=== PATIENT | female | born 2000 | race Caucasian/White ===

== ENCOUNTER 2019-10-01 08:05 | Day surgery (SDC) | payer OTHER ==
[~2019-10-01] VITALS: Ht 167.6 cm; Wt 56.7 kg
[2019-10-01] MEDS ORDERED: CEFAZOLIN SOD 1 GM in D5W 50 ML IV ONE (09:45)
[2019-10-01] MEDS ORDERED: KETOROLAC TROMETHAMINE 30 MG VIAL IVP PRN (11:30)
[2019-10-01] MEDS ORDERED: ONDANSETRON HCL 4 MG/2 ML VIAL IVP PRN ×2 (11:30→12:45)
[2019-10-01] MEDS ORDERED: fentaNYL CITRATE/PF 100 MCG/2 ML AMP IVP PRN (11:30)
[2019-10-01] MEDS ORDERED: LR 1,000 ML IV.SOLN IV ONE (12:20)
[2019-10-01] MEDS ORDERED: KETOROLAC TROMETHAMINE 30 MG VIAL ONE ×2 (12:20→14:47)
[2019-10-01] MEDS ORDERED: NS IRRIG SOLN 1000 ML IR ONE (12:20)
[2019-10-01] MEDS ORDERED: MIDAZOLAM HCL 5 MG/ML VIAL (VERSED) IV ONE (12:20)
[2019-10-01] MEDS ORDERED: fentaNYL CITRATE/PF 100 MCG/2 ML AMP ONE ×2 (12:20→12:41)
[2019-10-01] MEDS ORDERED: ROCURONIUM BROMIDE 10 MG/ML (ZEMURON) ONE (12:20)
[2019-10-01] MEDS ORDERED: SEVOFLURANE 15 MIN GAS INH ONE (12:20)
[2019-10-01] MEDS ORDERED: ONDANSETRON HCL 4 MG/2 ML VIAL ONE ×2 (12:20→14:05)
[2019-10-01] MEDS: fentaNYL CITRATE/PF 100 MCG/2 ML AMP IVP PRN ×2 (12:30→12:45)
[2019-10-01] MEDS ORDERED: METOCLOPRAMIDE HCL 10 MG/2 ML VIAL IVP ONE (14:45)
[2019-10-01] MEDS ORDERED: HYDROmorphone 1 MG INJ. 1 MG/ML AMPUL IVP ONE (14:45)
[2019-10-01] MEDS ORDERED: HYDROmorphone 1 MG INJ. 1 MG/ML AMPUL ONE (14:59)
[2019-10-01] MEDS ORDERED: METOCLOPRAMIDE HCL 10 MG/2 ML VIAL ONE (15:00)
[2019-10-01] MEDS ORDERED: SIMETHICONE 80 MG TAB.CHEW PO ONE (15:30)
--- NOTE | 2019-10-01 16:45 | NUR ---
Admission patient admitted to med surg floor S/P laparoscopy ablation of endometriosis. patient in stable condition. Iv patent, intact, and infusing fluids as ordered. no adverse side effects noted. no nausea, no vomiting noted. No complaints of pain. Surgical incision dressing intact, no active bleeding. On safety and aspiration precautions, HOB kept elevated, 3 side rails up, call light within reach. patient in stable condition. Will continue to monitor.
[2019-10-01 16:59] VITALS: BP_SYST 107
[2019-10-01] MEDS ORDERED: PRO20 PO (17:24)
--- NOTE | 2019-10-01 17:48 | NUR ---
Incentive spirometer Educated patient on the use of incentive spirometer, how to use, when to use, and why to use. Patient verbalized understanding. return demonstration done by patient. 1000ml inspired.
[2019-10-01] MEDS: SIMETHICONE 80 MG TAB.CHEW PO SCH ×3 (18:02→23:28)
--- NOTE | 2019-10-01 19:08 | NUR ---
closing note Patient resting in bed A/ox4, no complaints of pain. no nausea, no vomiting noted. Surgical incision dressing intact, no active bleeding. On safety and aspiration precautions, HOB kept elevated, 3 side rails up, call light within reach. patient in stable condition. All needs met.
[2019-10-01] MEDS ORDERED: IBUPROFEN 600 MG TABLET PO PRN (19:15)
--- NOTE | 2019-10-01 19:15 | NUR ---
Late Entry due to pt care: Pt is resting comfortably in bed fully awake, alert and oriented x4. Two Lap sites abdominal incisions are dry and intact with steri strips in place. No acute distress noted at this time and no c/o pain or discomfort. Saline lock is intact in LAC without any signs of infiltration. Pt c/o small amount of vaginal bleeding, but no blood clots. Fall and safety precautions are in place. Call light is with pt and bed is in the lowest and locked positions. Pt was instructed to call for assistance as needed and pt verbalized understanding. Pt's mother is in the room with pt.
[2019-10-01 20:00] VITALS: BP_SYST 102
--- NOTE | 2019-10-01 20:46 | NUR ---
Motrin 600mg 1 tablet was given po per pt's request for c/o 3/10 lower abdominal pain with relief. Ice packs also applied to pt's pelvic area with relief.
[2019-10-01] MEDS ORDERED: FLUoxetine HCL 20 MG CAPSULE (PROzac) PO SCH (21:00)
[2019-10-01] MEDS: HYDROcodone/ACETAMIN 5-325 MG TAB (NORCO/ VICODIN) PO PRN (23:36)
--- NOTE | 2019-10-01 23:36 | NUR ---
[place] 5/325mg 1 tablet was given po for c/o 3/10 lower abdominal pain with relief. Fall and safety precautions are in place. Pt's mother is in a recliner in pt's room.
[2019-10-02 01:00] VITALS: BP_SYST 102
--- NOTE | 2019-10-02 01:30 | NUR ---
Pt is resting quietly in bed. Fall and safety precautions are in place.
[2019-10-02] MEDS: SIMETHICONE 80 MG TAB.CHEW PO SCH ×5 (03:15→14:43)
--- NOTE | 2019-10-02 03:15 | NUR ---
Pt is resting comfortably in bed. Scheduled Mylicon tablets were given po. No c/o pain or discomfort. Pt continues to apply ice packs to her lower abdomen. Pt stated the ice packs give her soothing effect. Pt also stated her vaginal bleeding is minimal. Abdominal incisions are intact with steri strips in place. Fall and safety precautions are in place.
--- NOTE | 2019-10-02 05:13 | NUR ---
Pt is sleeping comfortably in bed. Pt's mother is sleeping in a recliner at the bedside. Fall and safety precautions are in place.
--- NOTE | 2019-10-02 06:24 | NUR ---
Pt is awake and resting comfortably in bed. All pt's needs were attended to. Fall and safety precautions are in place. Saline lock is intact in LAC. Will endorse to day shift nurse.
[2019-10-02] MEDS: HYDROcodone/ACETAMIN 5-325 MG TAB (NORCO/ VICODIN) PO PRN (06:56)
--- NOTE | 2019-10-02 07:25 | NUR ---
Initial note: Patient is awake , alert,oriented x4, complaint of incision pain and nausea , but just got Pain pill and Zofran this morning. Will continue monitor.
[2019-10-02 07:44] VITALS: BP_SYST 104
--- NOTE | 2019-10-02 08:11 | NUR ---
nausea: The mother is at bedside and patient still feeling nauseous, but just got Zofran ~ 1 hr ago and states Reglan worked better yesterday. Call Dr. Glover and get an order for Reglan 10 mg IVP x1.
[2019-10-02] MEDS ORDERED: METOCLOPRAMIDE HCL 10 MG/2 ML VIAL IVP ONE (08:15)
[2019-10-02] MEDS: OXYCODONE/ACETAMINOPHEN 5-325 TABLET PO PRN ×2 (10:05→15:51)
--- NOTE | 2019-10-02 10:07 | NUR ---
Pain: Patient states still having pain 6/10, but nauseous better. Give her Percocet PO for pain with Jello. Will continue monitor pain level. Her mother is at bedside.
--- NOTE | 2019-10-02 10:09 | NUR ---
MD dunbar: Dr. Adalberto dunbar speaks to the patient and the mother. He states it's OK to DC home with prescription if she's comfortable with pain level and F/U with him in 1 week.
[2019-10-02] MEDS ORDERED: METOCLOPRAMIDE HCL 10 MG TABLET PO PRN (10:15)
[2019-10-02 11:30] VITALS: BP_SYST 101
[2019-10-02] MEDS ORDERED: HYDR-4272 PO (13:13)
[2019-10-02 13:29] VITALS: BP_SYST 101
--- NOTE | 2019-10-02 14:18 | NUR ---
Prescription: Patient fells comfortable to go home, but needs prescriptions for Percocet and Reglan.
--- NOTE | 2019-10-02 15:56 | NUR ---
3rd page for MD: Patient still waiting prescription before DC home. Still waiting for MD to call back.
--- NOTE | 2019-10-02 16:34 | NUR ---
Got prescription: Dr. Pedraza is in the office, states patient's pharmacy is not verified. But he can write the prescription and have family to poultry picking machine tender before DC.
--- NOTE | 2019-10-02 16:47 | NUR ---
RN round: The mother went to get the prescription and went to fill up the prescription at her Pharmacy. Awaiting for her mom to picking supervisor.
--- NOTE | 2019-10-02 17:19 | NUR ---
D/C Patient Patient given medication reconciliation form and D/C instructions. Patient verbalized understanding. MD discussed with patient the results and treatment provided. Ambulatory with steady gait for discharge to home. Patient in stable condition, ID band removed. IV catheter removed, intact and dressing applied, no active bleeding. Rx of given. Patient educated on pain management. All belongings sent with patient.
== END 2019-10-02 17:30 | disposition home or self-care (01) ==
LOC: SMU 08:05 → SDS 08:05 → SMU 18:00 → SDS 10-02 17:30
PROVIDERS: ATTEND Specialist
DX: N93.8 Other specified abnormal uterine and vaginal bleeding (principal); N80.9 Endometriosis, unspecified; N94.6 Dysmenorrhea, unspecified; N76.0 Acute vaginitis; Z91.040 Latex allergy status; Z79.899 Other long term (current) drug therapy
CPT/HCPCS: 58662; C1727; J0690; J1170; J1885; J2250; J2405 ×2; J2765 ×2; J3010; J7060; J7120; J8597